=== PATIENT | male | born 1975 | race African-American/Black ===

== ENCOUNTER 2017-02-04 20:00 | Emergency (ER) | payer MEDICAID, OTHER ==
[2017-02-04] MEDS ORDERED: Amoxicillin/Clavulanate K 875-125 MG Tab ONE (20:20)
[2017-02-04] MEDS ORDERED: Ibuprofen 800 MG Tab ONE (20:20)
--- NOTE | 2017-02-04 20:37 | EDM.PDOC ---
ED HPI GENERAL MEDICAL PROBLEM - General Chief Complaint: ENT Problem Stated Complaint: TOOTHACHE Time Seen by Provider: 02/04/17 20:10 Source of Information: Reports: Patient History Limitations: Reports: No Limitations - History of Present Illness INITIAL COMMENTS - FREE TEXT/NARRATIVE: This is a 41yo M here for a right upper tooth pain. Patient states the pain started a day or two ago and has gotten severe. The pain started at work as he works at [employer]. Onset: Gradual Duration: Day(s):, Getting Worse Severity: Severe Improves with: Reports: None Worsens with: Reports: None ED ROS ENT - Review of Systems Review Of Systems: ROS reveals no pertinent complaints other than HPI. ED EXAM, ENT - Physical Exam Exam: See Below Exam Limited By: No Limitations General Appearance: Alert, WD/WN, Severe Distress Eye Exam: Bilateral Eye: EOMI Mouth/Throat: Other (caries, missing teeth, broken teeth, right upper 2nd bicuspid and 1st molar missing with pain at the 1st molar area; gum appears normal around this area; no lymph node enlargement, no swelling) Departure - Departure Time of Disposition: 20:00 Disposition: Home, Self-Care 01 Condition: Undetermined Clinical Impression: Dental caries, Tooth ache - Discharge Information Instructions: Diet and Dental Disease, Dental Dry Socket, [id number] Forms: ED Department Discharge - Problem List Review Problem List Initiated/Reviewed/Updated: Yes - Assessment/Plan Plan: Patient placed on augmentin and motrin 800mg TID for pain. Counseled on close monitoring and close f/u and to see a dentist emergently. Patient agrees with plan of care and f/u.
[2017-02-05 00:39] VITALS: BP 148/88
== END 2017-02-04 20:45 | disposition home or self-care (01) ==
LOC: LB.ED 20:00
DX: K02.9 Dental caries, unspecified (principal)
CPT/HCPCS: 99282; A9270

== ENCOUNTER 2017-03-25 13:04 | Emergency (ER) | payer MEDICAID, OTHER ==
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
[2017-03-25 14:22] VITALS: BP 125/86
== END 2017-03-25 13:25 | disposition home or self-care (01) ==
LOC: LB.ED 13:04
DX: M94.0 Chondrocostal junction syndrome [Tietze] (principal); F17.210 Nicotine dependence, cigarettes, uncomplicated
CPT/HCPCS: 93005; 99284; 99284-25

== ENCOUNTER 2020-10-08 14:10 | Emergency (ER) | payer SELFPAY ==
[2020-10-08] MEDS ORDERED: Sodium Chloride 0.9% 10 ML Syringe FLUSH PRN (14:48)
[2020-10-08 14:51] VITALS: PULSE 78
[2020-10-08 14:52] VITALS: BP 133/95
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
[2020-10-08] MEDS ORDERED: Iopamidol 612 MG/ML 100 ML Bottle IV PRN (15:13)
[2020-10-08] MEDS ORDERED: Sodium Chloride 0.9% 50 ML SDV FLUSH SCH (15:15)
--- NOTE | 2020-10-09 09:46 | CT ---
DATE OF SERVICE: 10/08/20 CLINICAL DATA: abdominal pain, blood in stool ENHANCED ABDOMEN AND PELVIC CT: Multislice acquisition through the abdomen and pelvis with IV, but with oral contrast was performed. No priors. The liver is normal size. There is mild diffuse fatty infiltration of the liver with increased fatty infiltration adjacent to the falciform ligament. No other focal hepatic lesions. The gallbladder appears normal. No biliary duct dilatation The spleen appears normal. The pancreas appears normal. The right and left adrenals appear normal. The right and left kidneys appear normal and enhance symmetrically. No hydronephrosis or hydroureter. The bladder is fluid filled. It appears normal. The prostate is mildly prominent. The appendix is not dilated. No evidence of appendicitis. There is apparent mural thickening of the descending and sigmoid colon. This is probably related to nondistention. There is subtle fat stranding adjacent to the colon at the junction of the sigmoid colon and descending colon. Colitis should be considered. No free air. No free fluid. No dilated loops of bowel. No adenopathy. No aortic aneurysm or dissection. There is small fat containing umbilical hernia. There is degenerative disc disease at multiple levels in the lower thoracic and lumbar spine. [id number] [facility]
== END 2020-10-08 16:15 | disposition home or self-care (01) ==
LOC: LB.ED 14:10
DX: K64.8 Other hemorrhoids (principal); Z72.0 Tobacco use
CPT/HCPCS: 36415; 74177; 80053; 83690; 85025; 99283; 99284-25; Q9967